=== PATIENT | female | born 1985 | race Caucasian/White ===

== ENCOUNTER 2017-01-21 23:50 | Emergency (ER) | payer MEDICAID ==
[~2017-01-21] VITALS: Ht 157.5 cm; Wt 82.6 kg
[2017-01-22 00:15] VITALS: BP_SYST 125
[2017-01-22] MEDS ORDERED: NACL 0.9% 1,000 ML IV ONE (00:44)
[2017-01-22] MEDS ORDERED: HYDROmorphone 1 MG INJ. 1 MG/ML AMPUL IVP ONE (00:45)
[2017-01-22] MEDS ORDERED: ONDANSETRON HCL 4 MG/2 ML VIAL IVP ONE (00:45)
[2017-01-22 01:44] LABS: CALCIUM 9.6 mg/dL (8.4-11.0); CREATININE 0.93 mg/dL (0.55-1.30); POTASSIUM 3.2 mmol/L (3.5-5.1)
[2017-01-22 01:47] LABS: INR 0.9 (0.8-1.2); PROTHROMBIN TIME 9.9 SECS (9.5-12.5)
[2017-01-22 01:48] LABS: BASOPHILS % (AUTO) 0.4 % (0.0-2.0); EOSINOPHILS # (AUTO) 0.3 K/uL (0.0-0.4); EOSINOPHILS % (AUTO) 2.5 % (0.0-4.0); HEMATOCRIT 36.8 % (36-48); HEMOGLOBIN 12.6 g/dL (12.0-16.0); LYMPHOCYTES # (AUTO) 2.3 K/uL (1.0-5.5); LYMPHOCYTES % (AUTO) 19.1 % (20.5-51.5); MEAN CORPUSCULAR HEMOGLOBIN 31 pg (27-31); MEAN CORPUSCULAR HGB CONC 34 % (32-36); MEAN CORPUSCULAR VOLUME 89 fL (79.0-98.0); MONOCYTES # (AUTO) 0.4 K/uL (0.0-1.0); MONOCYTES % (AUTO) 3.5 % (1.7-9.3); NEUTROPHILS # (AUTO) 9.2 K/uL (1.8-7.7); NEUTROPHILS % (AUTO) 74.5 % (40.0-70.0); PLATELET COUNT (AUTO) 192 K/uL (130-430); RED BLOOD CELL COUNT(AUTO) 4.12 MIL/uL (4.2-6.2); RED CELL DISTRIBUTION WIDTH 12.7 % (9.0-15.0); WHITE BLOOD COUNT (AUTO) 12.2 K/uL (4.8-10.8)
[2017-01-22 02:10] LABS: ALBUMIN 3.6 g/dL (3.4-4.8); TOTAL BILIRUBIN 0.4 mg/dL (0.0-1.0); TOTAL PROTEIN, SERUM 7.3 g/dL (6.4-8.3)
[2017-01-22 03:36] VITALS: BP_SYST 125
== END 2017-01-22 03:16 | disposition home or self-care (01) ==
LOC: SED 23:50
DX: O03.9 Complete or unspecified spontaneous abortion without complication (principal); E07.9 Disorder of thyroid, unspecified; Z98.890 Other specified postprocedural states
CPT/HCPCS: 36415; 76805; 80053; 84702; 85025; 85610; 85730; 86886; 86900; 86901; 96361; 96374; 96375; 99285; J1170; J2405; J7030

== ENCOUNTER 2020-09-26 21:29 | Emergency (ER) | payer MEDICAID ==
[~2020-09-26] VITALS: Ht 154.9 cm; Wt 74.8 kg
--- NOTE | 2020-09-26 21:30 | NUR ---
Patient to ER bed 6 to gown for evaluation. Side rails up.
[2020-09-26 21:32] VITALS: BP_SYST 149
--- NOTE | 2020-09-26 21:35 | NUR ---
DR. HOANG BEDSIDE FOR PT EVAL
[2020-09-26] MEDS ORDERED: EPINEPHrine 1 MG/ML AMP ONE (21:36)
--- NOTE | 2020-09-26 21:44 | NUR ---
Pt BIB family to ED C/O allergy to selfish and history of hypothyroidism, presents to the ED with acute onset of diffuse bodily rash after taking Ibuprofen earlier today. Patient also presents with mild difficulty speaking and breathing. Patient able to speak in full sentences without breaks. Onset of symptoms began with swelling and warmth to her face and needle-like sensation to her tongue. Patient had similar symptoms in the past with Excedrin. Denies fever, chills, nausea, vomiting, chest pain, or other complaints
[2020-09-26] MEDS ORDERED: EPINEPHrine 1 MG/ML VIAL IM ONE (21:45)
[2020-09-26] MEDS ORDERED: FAMOTIDINE 20 MG TABLET PO ONE (21:45)
[2020-09-26] MEDS ORDERED: DIPHENHYDRAMINE HCL 50 MG CAPSULE PO ONE (21:45)
[2020-09-26] MEDS ORDERED: predniSONE 20 MG TABLET PO ONE (21:45)
--- NOTE | 2020-09-26 22:45 | NUR ---
Pt states " feeling better." VSS no s/s of acute distress Resting on gurdillon rails up
[2020-09-26] MEDS ORDERED: EPIN0.3A9 IM (23:29)
[2020-09-26] MEDS ORDERED: BEN50 PO (23:30)
--- NOTE | 2020-09-27 | NUR ---
Dr. Whitt [facility] for pt re-eval
--- NOTE | 2020-09-27 01:05 | NUR ---
VSS no s/s of acute distress Resting on gurney rails up
[2020-09-27 02:10] VITALS: BP_SYST 142
--- NOTE | 2020-09-27 02:10 | NUR ---
Patient given written and verbal discharge instructions and verbalizes understanding. ER MD discussed with patient the results and treatment provided. Patient in stable condition. ID arm band removed. Rx of Epi and Benadryl given. Patient educated on pain management and to follow up with PMD. Pain Scale 0/10 Opportunity for questions provided and answered. Medication side effect fact sheet provided.
== END 2020-09-27 02:10 | disposition home or self-care (01) ==
LOC: SED 21:29
DX: T39.315A Adverse effect of propionic acid derivatives, initial encounter (principal); E07.9 Disorder of thyroid, unspecified; Y92.89 Other specified places as the place of occurrence of the external cause
CPT/HCPCS: 96372; 99284; J0171; J7512; Q0163